=== PATIENT | male | born 1990 | race Caucasian/White ===

== ENCOUNTER 2018-06-10 20:53 | Emergency (ER) | payer SELFPAY ==
[2018-06-10] MEDS: IBUPROFEN 800 MG TAB PO (22:16)
[2018-06-10] MEDS: METHOCARBAMOL 750 MG TAB PO (22:16)
== END 2018-06-11 00:30 | disposition home or self-care (01) ==
LOC: FTE 06-11 00:30
DX: M25.512 Pain in left shoulder (principal)
CPT/HCPCS: 99283